=== PATIENT | male | born 1955 | race Two or more races ===

== ENCOUNTER → 2018-03-21 06:28 | Outpatient (CLI) | payer OTHER ==
[~2018-03-21 06:28] MED LIST: AMLODIPINE BESY10 MG PO; CELEBREX100 MG PO; COZAAR100 MG PO; SYMBICORT 16010.2 GM IH; TRAMADOL HCL50 MG PO
== END | disposition home or self-care (01) ==
LOC: LAB 06:28
DX: D64.89 Other specified anemias (principal); E88.89 Other specified metabolic disorders; D68.8 Other specified coagulation defects; N39.0 Urinary tract infection, site not specified; B95.62 Methicillin resistant Staphylococcus aureus infection as the cause of diseases classified elsewhere; M85.88 Other specified disorders of bone density and structure, other site; I49.8 Other specified cardiac arrhythmias; E55.9 Vitamin D deficiency, unspecified

== ENCOUNTER 2018-04-06 12:27 | Inpatient (IN) | payer OTHER ==
[~2018-04-06] VITALS: Ht 175.3 cm; Wt 99.8 kg
[2018-04-06] MEDS ORDERED: SYMBICORT 16010.2 GM IH (12:44)
[2018-04-06] MEDS ORDERED: COZAAR100 MG PO (12:44)
[2018-04-06] MEDS ORDERED: AMLODIPINE BESY10 MG PO (12:44)
[2018-04-06] MEDS ORDERED: TRAMADOL HCL50 MG PO (12:44)
[2018-04-06] MEDS ORDERED: CELEBREX100 MG PO (12:45)
== END 2018-04-20 10:46 | DRG 470 ==
LOC: CIR.AMB 04-17 12:24 → O/R 04-17 12:27 → EDSTATUS 04-17 12:37 → CIR.AMB 04-17 18:34 → SURG 04-18 13:54
PROVIDERS: Orthopaedic Surgery
PROC: 0SRD0J9 Replacement of Left Knee Joint with Synthetic Substitute, Cemented, Open Approach (ICD-10-PCS; principal; 2018-04-17 13:45)
DX: M17.12 Unilateral primary osteoarthritis, left knee (principal); I10 Essential (primary) hypertension

== ENCOUNTER 2019-08-08 13:04 | Outpatient (CLI) | payer OTHER | END 2019-08-08 13:11 | disposition home or self-care (01) | LOC: RAD 13:04 | DX: M25.521 Pain in right elbow (principal); M25.561 Pain in right knee; M25.562 Pain in left knee ==

== ENCOUNTER 2020-03-25 10:03 | Outpatient (CLI) | payer OTHER | END 2020-03-25 10:09 | disposition home or self-care (01) | LOC: RAD 10:03 | PROVIDERS: ATTEND Orthopaedic Surgery | DX: M25.561 Pain in right knee (principal) ==

== ENCOUNTER → 2020-10-21 14:34 | Outpatient (CLI) | payer OTHER | END | disposition home or self-care (01) | LOC: LAB 14:34 | PROVIDERS: ATTEND Orthopaedic Surgery | DX: N39.0 Urinary tract infection, site not specified (principal); B96.29 Other Escherichia coli [E. coli] as the cause of diseases classified elsewhere ==